=== PATIENT | female | born 1980 | race Two or more races ===

== ENCOUNTER 2019-06-08 06:53 | Emergency (ER) | payer MEDICAID ==
[~2019-06-08] VITALS: Ht 167.6 cm; Wt 113.4 kg
[2019-06-08 07:03] VITALS: BP 146/100
== END 2019-06-08 08:58 | disposition left against medical advice (07) ==
LOC: ER 06:53
DX: F41.9 Anxiety disorder, unspecified (principal); R11.2 Nausea with vomiting, unspecified; J02.9 Acute pharyngitis, unspecified; Z53.21 Procedure and treatment not carried out due to patient leaving prior to being seen by health care provider